=== PATIENT | female | born 1985 | race African-American/Black ===

== ENCOUNTER → 2024-09-30 | Outpatient (CLI) | payer OTHER ==
--- NOTE | 2024-09-30 11:40 | XR ---
EXAMINATION TYPE: XR shoulder complete LT DATE OF EXAM: 09/30/2024 11:27 AM INDICATION: Patient age:Unknown; 39 years old; Reason for study: S46.912A; pain COMPARISON: None TECHNIQUE: The left shoulder was examined in AP, internally rotated and scapular Y projections. . FINDINGS: No evidence of acute osseous pathology, joint dislocation, or soft tissue swelling. The remaining por tions of the visualized chest are unremarkable. IMPRESSION: No acute osseous pathology. [facility], , 09/30/2024 11:37 AM
== END | disposition home or self-care (01) ==
LOC: EDSEX 11:14 → RADXRMAIN 11:14
PROVIDERS: ATTEND Emergency Medicine
DX: S46.912A Strain of unspecified muscle, fascia and tendon at shoulder and upper arm level, left arm, initial encounter (principal); X58.XXXA Exposure to other specified factors, initial encounter

== ENCOUNTER 2025-03-04 05:57 | Day surgery (SDC) | payer OTHER ==
[2025-03-03 09:47] VITALS: BMI 26.2
--- NOTE | 2025-03-03 14:36 | HP ---
HISTORY AND PHYSICAL Surgery scheduled for 03/04/2025. HISTORY OF PRESENT ILLNESS: Raymundo Bae is a 39-year-old patient seen with progressive left shoulder pain, failing conservative treatment measures. Options were discussed. She elected to proceed with arthroscopy. Consent was obtained. PAST MEDICAL HISTORY: Hypertension. PAST SURGICAL HISTORY: Noncontributory. DAILY MEDICATIONS: Etodolac. ALLERGIES: None. SOCIAL HISTORY: She denies tobacco use. PHYSICAL EXAMINATION: Physical evaluation of the left shoulder, flexion is 100 degrees, abduction 70 degrees. External rotation is 40 degrees with some pain and weakness, tenderness along the anterolateral acromion, acromioclavicular joint, rotator cuff along the biceps tendon. Impingement positive at 90 degrees. Cross-body adduction sign is positive. Drop-arm sign is positive. Distal neurovascular exam is intact. IMAGING STUDIES: Left shoulder radiographs revealed a type 2 acromion along with moderate acromioclavicular joint osteoarthritis. MRI of left shoulder revealed partial rotator cuff tendon tear along with acromioclavicular osteoarthritis. IMPRESSION: 1. Left shoulder impingement with rotator cuff tear. 2. Left shoulder acromioclavicular joint osteoarthritis. PLAN: Left shoulder arthroscopy with subacromial decompression, arthroscopic rotator cuff repair, Zenaida procedure and debridement. MMODL / IJN: [id number] /
[2025-03-04] MEDS ORDERED: LIDOCAINE 1% (10MG/ML) FOR IV START INTRADERMA PRN (06:09)
[2025-03-04] MEDS: LACTATED RINGERS 1,000 ML IV SCH (06:44)
[2025-03-04] MEDS: DEXAMETHASONE SOD PHOSPHATE 4 MG/ML 1 ML VIAL IV ONE (06:45)
[2025-03-04] MEDS: IV FLUID CONTINUATION 1,000 ML IV ONE (06:45)
[2025-03-04] MEDS: ONDANSETRON 4 MG/2 ML VIAL IVP ONE (06:45)
[2025-03-04] MEDS: MIDAZOLAM 2 MG/2 ML VIAL IV ONE (06:49)
[2025-03-04] MEDS: fentaNYL (PF) 50 MCG/ML 2 ML AMP IVP ONE (06:49)
[2025-03-04] MEDS ORDERED: HYDROmorphone 0.5 MG/0.5 ML SYRINGE IVP PRN (07:00)
--- NOTE | 2025-03-04 07:17 | P.ANPRN ---
Procedure Note - Anesthesia - Nerve Block Performed Left Interscalene Single Time Out Performed: Yes Date of Procedure: 03/04/25 Procedure Start Time: 06:48 Procedure Stop Time: 06:54 Location of Patient: PreOp Indication: Acute Post-Operative Pain, Requested by Surgeon Sedation Type: Sedate with meaningful contact maintained Preparation: Sterile Prep Position: Supine Needle Types: Pajunk Needle Gauge: 21 Ultrasound used to visualize needle placement: Yes Ultrasound used to observe medication spread: Yes Injectate: 0.5% Ropivacaine (see comment for volume) (5 mL +4 mg dexamethasone) Blood Aspirated: No Pain Paresthesia on Injection Noted: No Resistance on Injection: Normal Image Stored and Saved: Yes Events: Uneventful and Well Tolerated
[2025-03-04] MEDS ORDERED: LIDOCAINE 4% LTA KIT (4 ML) TOPICAL ONE (07:23)
[2025-03-04] MEDS ORDERED: PROPOFOL 10 MG/ML 20 ML VIAL IV ONE (07:23)
[2025-03-04] MEDS ORDERED: LABETALOL 5 MG/ML VIAL MDV ONE (07:23)
[2025-03-04] MEDS ORDERED: LIDOCAINE 1% INJ 10MG/ML (20 ML MDV) ONE (07:23)
[2025-03-04] MEDS ORDERED: DEXAMETHASONE SOD PHOSPHATE 4 MG/ML 1 ML VIAL ONE (07:23)
[2025-03-04] MEDS ORDERED: SUCCINYLCHOLINE CHLORIDE 200 MG/10 ML VIAL IV ONE (07:23)
[2025-03-04] MEDS ORDERED: ROPIVACAINE 5 MG/ML 30 ML VIAL ONE (07:23)
[2025-03-04] MEDS ORDERED: hydrALAZINE HCL 20 MG/ML 1 ML VIAL ONE (07:23)
--- NOTE | 2025-03-04 09:06 | P.OP ---
Date of Procedure: 03/04/25 Preoperative Diagnosis: Left shoulder impingement Postoperative Diagnosis: 1. Left shoulder rotator cuff tear 2. Left shoulder impingement 3. Left shoulder superficial labral tear Procedure(s) Performed: 1. Left shoulder arthroscopic rotator cuff repair 2. Left shoulder arthroscopic subacromial decompression 3. Left shoulder arthroscopic debridement labral tear Implants: 1Arthrex 5.5 swivel lock anchor Anesthesia: GETA, regional (Interscalene block) Surgeon: Giuseppe Cartwright Customer Relations Consultant #1: Jose Miranda Estimated Blood Loss (ml): 7 Pathology: none sent Condition: stable Disposition: PACU Indications for Procedure: 39-year-old patient seen with progressive left shoulder pain. After having treatment options discussed, she elected to proceed with arthroscopy. Operative Findings: See description of procedure Description of Procedure: Patient underwent an interscalene block by department of anesthesia. The patient was then taken to the operative suite. The patient underwent a general anesthetic by the department of anesthesia. The patient was placed into a lateral position and secured. There was appropriate padding of the bony prominence. Left shoulder was then prepped and draped in normal sterile orthopedic fashion. We placed the extremity in 10 pounds of longitudinal traction. A posterior incision was now made for a posterior working portal site. The trocar and cannula were inserted into the glenohumeral joint. Arthroscopy was initiated. Spinal needle was now inserted anteriorly, to ascertain the anterior working portal site. An incision was now made in that area, a trocar was inserted followed by a probe. There was some superficial tearing of the anterior labrum. There was no chondromalacia. The biceps appeared intact. I reduced a motorized shaver and debrided the superficial labral tear. The residual labrum was probed and was found to be stable. Instruments were now removed from the glenohumeral joint. Utilizing the posterior working portal site, the trocar and cannula were inserted into the subacromial space. Arthroscopy initiated. I made an incision 2 fingerbreadths lateral to the acromion. I introduced my trocar followed by my ArthroCare ablator. I now began ablating thick subacromial bursal tissue, which exposed the undersurface of the anterior acromion. There was diminished subacromial space. There was a very prominent anterior acromion. A motorized bur was introduced and a subacromial decompression was performed. I also excised some osteophytes off the inferior aspect of the distal clavicle. The AC joint was visualized and noted to be mildly arthritic. I turned my attention to the rotator cuff tendon. Upon probing the area noted a full-thickness tear along the distal supraspinatus. I debrided that getting down to stable tendon tissue. The defect/tear measured about 1.5 cm and was freely mobile over the footprint. I abraded the footprint with a motorized bur. With the assistance of Kamari INIGUEZ I passed 2 Ubretid mattress sutures through good bites of rotator cuff tendon. I punch hole in the footprint area for insertion of an anchor. All 4 limbs of suture were passed through the eyelet of an Arthrex 5.5 swivel lock anchor. I placed the eyelet into the prepunched hole. I held it in position while Kamari INIGUEZ tensioned all 4 limbs of suture and deployed the anchor with good fixation noted. All residual suture limbs were now clipped. We had good compression of the tendon along the entire footprint. Instruments now removed from the portal sites. All portal sites were approximated with nylon suture. Sterile dressings were applied followed by a shoulder immobilizer. Jose INIGUEZ assisted in all aspects of this case. The patient was awakened, transferred to a bed, and taken to recovery in stable condition.
[2025-03-04] MEDS: hydrALAZINE HCL 20 MG/ML 1 ML VIAL IVP STA (11:00)
[2025-03-04] MEDS ORDERED: ACETAMINOPHEN TAB 325 MG TAB PO PRN (16:07)
[2025-03-04] MEDS: droPERidol 2.5 MG/ML VIAL IVP ONE (17:10)
[2025-03-04] MEDS: traMADol 50 MG TAB PO PRN (19:01)
[2025-03-04] MEDS ORDERED: hydrALAZINE HCL 20 MG/ML 1 ML VIAL IVP PRN (20:33)
--- NOTE | 2025-03-04 22:02 | P.CONS ---
History of Present Illness - Reason for Consult Consult date: 03/04/25 Management of hypertension - Chief Complaint Shoulder pain - History of Present Illness This is a 39-year-old female patient with a past medical history of essential hypertension presented with progressive left shoulder pain. Patient is admitted under Ortho for management of left shoulder rotator cuff tear and left shoulder superficial labral tear. Patient is status post surgery. She is complaining of left shoulder pain. It was reported that her blood pressure was elevated where she did receive a dose of IV hydralazine . Her blood pressure improved , but now her pressure went up to 170 systolic and 112 diastolic . She is still complaining of pain at the surgical site and currently receiving oral tramadol. No symptoms of chest pain, headache or blurry vision. Surgical team consulted hospitalist for blood pressure management. Patient usually takes Urazide , but she has to bring her medication from home . Review of system : Negative except for mentioned in HPI PE : General: Slightly in distress due to pain Derm: warm, dry, intact Head: atraumatic, normocephalic, symmetric Eyes: EOMI, anicteric sclera Mouth: no lip lesion, mucus membranes moist Cardiovascular: S1 S2 reg, no murmur, rubs, or gallops Lungs: CTA bilateral, no rales, no accessory muscle use Abdominal: soft, non-tender to palpataion, no appreciable organomegaly Neuro: Alert, Oriented, CNII-XII grossly intact, gait normal Psych: well appearing, appropriate affect Assessment and plan : -Accelerated hypertension : Patient usually on Urazide Will give one time Clonidine 0.2 mg If BP does not improve , will start IV hydralazine 10 mg q 6h PRN for systolic > 160 IV dilaudid for pain - Rotator cuff tear at the left shoulder status post surgery : Ortho is managing Thank you for the consult and we will keep following Time spent : 55 min Past Medical History Past Medical History: Hypertension Additional Past Medical History / Comment(s): torn tendon left shoulder,healing boil rt thigh, History of Any Multi-Drug Resistant Organisms: None Reported Past Surgical History: No Surgical Hx Reported Additional Past Anesthesia/Blood Transfusion Reaction / Comm: never has had anesthesia. no hx blood transfusion Past Psychological History: No Psychological Hx Reported Smoking Status: Never smoker Past Alcohol Use History: None Reported Past Drug Use History: None Reported - Past Family History Mother Family Medical History: Cancer Medications and Allergies Home Medications Medication Instructions Recorded Confirmed Type Naproxen [Naprosyn] 500 mg PO BID PRN 03/03/25 03/04/25 History Tylenol Migrain Relief 1 dose PO DIRECTED PRN 03/03/25 03/03/25 History Urazide 50 mg PO DAILY 03/03/25 03/04/25 History HYDROcodone/APAP 7.5-325MG [[place] 1 each PO Q6HR PRN #21 tab 03/04/25 Rx 7.5] Allergies Allergy/AdvReac Type Severity Reaction Status Date / Time No Known Allergies Allergy Verified 03/04/25 06:29 Physical Exam Vitals: Vital Signs Temp Pulse Pulse Resp BP Pulse Ox 03/04/25 19:03 104 H 147/90 99 03/04/25 18:59 106 H 18 156/102 99 03/04/25 18:44 96 148/94 98 03/04/25 18:30 102 H 153/95 99 03/04/25 18:14 94 161/94 98 03/04/25 17:59 90 156/96 97 03/04/25 17:44 95 141/91 98 03/04/25 17:29 98 157/97 98 03/04/25 17:00 85 16 130/88 96 03/04/25 16:38 97.9 F 85 17 130/88 96 03/04/25 16:00 87 16 125/93 96 03/04/25 15:00 82 16 126/85 96 03/04/25 14:00 97 16 118/77 97 03/04/25 13:30 99 16 108/71 97 03/04/25 13:00 91 16 107/74 97 03/04/25 12:46 98 16 105/68 96 03/04/25 12:16 87 16 109/67 96 03/04/25 12:01 87 14 105/65 96 03/04/25 11:46 89 16 109/68 96 03/04/25 11:32 87 16 112/70 96 03/04/25 11:17 76 16 128/88 97 03/04/25 11:02 95 16 136/82 96 03/04/25 10:47 82 16 140/109 96 03/04/25 10:32 87 16 149/105 96 03/04/25 10:23 82 12 132/96 96 03/04/25 10:08 98.1 F 71 14 133/96 96 03/04/25 09:53 80 13 146/91 96 03/04/25 09:38 80 14 136/92 96 03/04/25 09:23 80 15 144/100 97 03/04/25 09:08 82 17 145/99 99 03/04/25 08:53 96.8 F L 93 14 159/108 98 03/04/25 07:04 61 16 157/107 100 03/04/25 06:55 63 16 167/105 99 03/04/25 06:50 62 14 163/112 100 03/04/25 06:35 97.2 F L 70 16 152/102 99 Intake and Output 03/04/25 03/04/25 03/04/25 06:59 14:59 22:59 Intake Total 100 950 Output Total 7 Balance 100 943 Intake: IV 100 950 Output: Estimated Blood Loss 7 Other: Weight 67.9 kg 67.9 kg
[2025-03-05] MEDS: HYDROmorphone 0.5 MG/0.5 ML SYRINGE IVP PRN (04:26)
--- NOTE | 2025-03-05 08:17 | P.DS ---
Providers Date of admission: 03/04/25 Expected date of discharge: 03/05/25 Attending physician: Giuseppe Cartwright Consults: 03/04/25 20:20 Consult Physician Stat Consulting Provider: Hernán Piper Consult Reason/Comments: medical management high blood Do you want consulting provider notified?: Yes Primary care physician: [facility] Course: Hospital Course: The patient was evaluated preoperatively and found to have the diagnosis of left shoulder rotator cuff tear. They underwent appropriate preoperative care and were willing to undergo the intended procedure. They underwent a successful left shoulder arthroscopic repair, were recovered appropriately and sent to the floor. While on the floor they worked with physical therapy, occupational therapy and nursing to enhance their recovery experience. Their pain was well controlled through their stay and they were started on appropriate medications, DVT ppx modalities, activity and dietary needs. Daily labs were monitored closely, and transfusions were only used when necessary. Medicine as well as other consulting services have made their input and have helped with our team approach and multidisciplinary care. PT milestones have been met and passed and they have made the recommendation of home for this patient and treating providers agree with this care path. The patient will be discharged home with appropriate medications, instructions and follow-up information and in stable condition. Patient Condition at Discharge: Good Plan - Discharge Summary Discharge Rx Participant: No New Discharge Prescriptions: New HYDROcodone/APAP 7.5-325MG [[place] 7.5] 1 each PO Q6HR PRN #21 tab PRN Reason: Pain No Action Urazide 50 mg PO DAILY Naproxen [Naprosyn] 500 mg PO BID PRN PRN Reason: Pain Tylenol Migrain Relief 1 dose PO DIRECTED PRN PRN Reason: Pain Discharge Medication List Naproxen [Naprosyn] 500 mg PO BID PRN 03/03/25 [History] Tylenol Migrain Relief 1 dose PO DIRECTED PRN 03/03/25 [History] Urazide 50 mg PO DAILY 03/03/25 [History] HYDROcodone/APAP 7.5-325MG [[place] 7.5] 1 each PO Q6HR PRN #21 tab 03/04/25 [Rx] Follow up Appointment(s)/Referral(s): Jose Miranda PAC [PHYSICIAN FLOORING PROFESSIONAL] - 03/19/25 10:10 am Patient Instructions/Handouts: *Surgery [facility] - (Anesthesia) Discharge Instructions Outpatient Surgery, *Surgery [facility] - (Adv Ortho) Shoulder Discharge Instructions, Peripheral Nerve Block (DC) Discharge Disposition: HOME SELF-CARE
--- NOTE | 2025-03-05 08:24 | P.PN ---
Subjective Progress Note Date: 03/05/25 Principal diagnosis: 1. Left shoulder rotator cuff tear 2. Left shoulder impingement 3. Left shoulder superficial labral tear Patient seen and examined this morning. Patient is resting comfortably in bed. She has been standby assist to the restroom, tolerating activity well. She does report that her pain is managed on current regimen. Patient does continue to be slightly sleepy during conversation. She does report that she feels safe going home. She states that her sister has picked up her medications from the pharmacy. Dressing to the left shoulder is clean dry and intact. No acute concerns. Objective - Vital Signs Vital signs: Vital Signs Temp 97.4 F L 03/05/25 07:15 Pulse 67 03/05/25 07:15 Resp 16 03/05/25 07:15 BP 112/72 03/05/25 07:15 Pulse Ox 99 03/05/25 07:15 FiO2 Intake & Output 03/04/25 03/05/25 03/05/25 18:59 06:59 18:59 Intake Total 950 Output Total 7 Balance 943 Weight 67.9 kg Intake: IV 950 Output: Estimated Blood Loss 7 Other: Voiding Method Bedpan # Voids 2 - Exam Inspection: Bulky dressing to the left shoulder is clean dry and intact. Sensation: Sensation is equal, symmetric, bilaterally intact throughout the upper and lower extremities Palpation: There is tenderness over the left shoulder secondary to surgery. Range of motion: Limited range of motion of the left shoulder secondary to pain and surgical procedure. Motor: Left: shoulder abduction 4-/5, elbow flexors 4/5, wrist dorsiflexors 4/5. finger abductor 4/5, industrial maintenance electrician 4/5, Neurovascular: Radial pulse intact, 2+ bilaterally. Cap refill under 3 seconds in digits upper extremities. Assessment and Plan Assessment: Postop day 1: Left shoulder arthroscopic repair Plan: -Appreciate it architecture consultant and team management. -Activity: Ambulate QID, OOB all meals, up and about, limit lifting bending twisting to less than 5 lbs. Use walker or cane if needed for stability. -Daily PT/OT, increase ambulation strength and balance. -Pain control: Adequate at this time -Meds: reviewed -Hygiene: Maintain incision clean and dry. -Encourage IS 10x/hr -Dispo: Discharge home later today. *I reviewed and discussed this case with my attending Dr. Cartwright, whom has reviewed this chart and films and is in agreement with assessment and plan of care as outlined above. I have personally seen and examined the patient, performed the documentation and the assessment and plan as written. Number of minutes spent on the visit: 20m
[2025-03-05] MEDS: SPIRONOLACTONE 25 MG TAB PO SCH (09:05)
--- NOTE | 2025-03-05 12:44 | P.PN ---
Subjective Progress Note Date: 03/05/25 Hospital course: Patient is a very pleasant 39-year-old female with a past medical history of hypertension. She is currently admitted under orthopedic surgery team status post left shoulder rotator cuff repair. Surgical procedure was completed secondary to intractable left shoulder pain resulting from superficial labral tear. We were consulted for medical management and hypertensive urgency and postoperative period. Physical exam: Patient seen full evaluated at bedside this morning. She is currently resting comfortably in bed. She was just medicated for pain and reports pain medication is controlling. She did receive a single dose of IV hydralazine for hypertensive urgency during postoperative period but blood pressures have since significantly improved and currently controlled at 112/72. Patient reports moderate postoperative pain as well as pain in her left wrist. Patient's postop erative sling was adjusted and patient instructed it is important not to rest ulnar wrist on the end of sling as this can result in nerve compression. Patient verbalized understanding. She denies any other complaints including chest pain, palpitations, shortness of breath, dizziness, lightheadedness, or experiencing any numbness/tingling in her left hand. Movement intact of fingers and she is able to make fist. Vital signs reviewed and stable. General: Nontoxic, no distress and appears stated age. Derm: Skin warm and dry, normal coloration for ethnicity. Head: Atraumatic, normocephalic and symmetric. Eyes: EOM's intact, no lid lag, and anicteric sclera Mouth: no lip lesions, mucus membranes moist Cardiovascular: regular rate and rhythm with normal S1S2, no murmur, positive posterior tibial pulses bilaterally, and cap refill < 2 seconds. Lungs: Respirations even, regular, and unlabored on room air. Lungs CTA bilaterally, no rhonchi, no rales, no wheezing, and no accessory muscle usage. Abdominal: soft, nontender to palpation, no guarding, no appreciable organomegaly Ext: No gross muscle atrophy, no edema, no contractures. Postoperative dressing in place left shoulder and left arm in sling. Movement and sensation of left hand and fingers intact. Neuro: Speech clear, face symmetrical and CN II-XII grossly intact with no noted focal neuro deficits Psych: Alert and oriented to person, place, time, and situation. Appropriate and pleasant affect. Assessment and Plan of Care: Status post left shoulder rotator cuff repair -Management per primary admitting orthopedic surgery team including DVT prophylaxis, pain management, wound/dressing management, and weightbearing of left upper extremity. Accelerated hypertension, likely secondary to uncontrolled postoperative pain - Accelerated hypertension has resolved after antihypertensive medication administration as well as optimizing pain control. Morning blood pressure 112/72 and heart rate 67. Continue to monitor vital signs and patient to continue daily medication regimen with [place] 50 mg daily. Data reviewed: Vital signs reviewed. Blood pressure 112/72, heart rate 67, respiratory rate 16, temp 97.4 F, and SpO2 of 99% on room air. Patient is medically optimized for discharge once cleared by primary admitting orthopedic surgery team. Thank you for allowing us to participate in the care of this pleasant patient. Do not hesitate to contact us with questions. Someone can be reached from the [facility] hospitalist group all hours of the day at [phone] or via [employer]. Patient was seen independently by Nurse Pracitioner. This document was prepared using [employer] dictation software. Please allow for errors in target network analyst, while rare they do occur. Dewey Pitts NP rendered care for this patient independently, reviewed the findings and plan as documented in the note above and agree with plan. I did not physically speak with or examine the patient on this date. Objective - Vital Signs Vital signs: Vital Signs Temp 97.4 F L 03/05/25 07:15 Pulse 67 03/05/25 07:15 Resp 16 03/05/25 07:15 BP 112/72 03/05/25 07:15 Pulse Ox 99 03/05/25 07:15 FiO2 Intake & Output 03/04/25 03/05/25 03/05/25 18:59 06:59 18:59 Intake Total 950 Output Total 7 Balance 943 Weight 67.9 kg Intake: IV 950 Output: Estimated Blood Loss 7 Other: Voiding Method Bedpan # Voids 2
[2025-03-05] MEDS: ACETAMINOPHEN TAB 500 MG TAB PO SCH (15:04)
[2025-03-05] MEDS: NAPROXEN 250 MG TAB PO PRN (16:44)
--- NOTE | 2025-03-06 09:13 | P.PN ---
Subjective Progress Note Date: 03/06/25 Hospital course: Patient is a very pleasant 39-year-old female with a past medical history of hypertension. She is currently admitted under orthopedic surgery team status post left shoulder rotator cuff repair. Surgical procedure was completed secondary to intractable left shoulder pain resulting from superficial labral tear. We were consulted for medical management and hypertensive urgency and postoperative period. Physical exam: Patient seen full evaluated at bedside this morning. She is currently resting comfortably in bed. Left shoulder dressing in place in left upper extremity in sling. Patient currently reports pain is controlled with current pain medication regimen. She reports pain previously experienced in the left wrist has resolved and continues to deny having any numbness or tingling in her left hand. Patient denies having any other questions, concerns, complaints, or needs at this time. Vital signs reviewed and stable. General: Nontoxic, no distress and appears stated age. Derm: Skin warm and dry, normal coloration for ethnicity. Head: Atraumatic, normocephalic and symmetric. Eyes: EOM's intact, no lid lag, and anicteric sclera Mouth: no lip lesions, mucus membranes moist Cardiovascular: regular rate and rhythm with normal S1S2, no murmur, positive posterior tibial pulses bilaterally, and cap refill < 2 seconds. Lungs: Respirations even, regular, and unlabored on room air. Lungs CTA bilaterally, no rhonchi, no rales, no wheezing, and no accessory muscle usage. Abdominal: soft, nontender to palpation, no guarding, no appreciable organomegaly Ext: No gross muscle atrophy, no edema, no contractures. Postoperative dressing in place left shoulder and left arm in sling. Movement and sensation of left hand and fingers intact. Neuro: Speech clear, face symmetrical and CN II-XII grossly intact with no noted focal neuro deficits Psych: Alert and oriented to person, place, time, and situation. Appropriate and pleasant affect. Assessment and Plan of Care: Status post left shoulder rotator cuff repair -Management per primary admitting orthopedic surgery team including DVT prophylaxis, pain management, wound/dressing management, and weightbearing of left upper extremity. Accelerated hypertension, likely secondary to uncontrolled postoperative pain - Accelerated hypertension has resolved after antihypertensive medication administration as well as optimizing pain control. Continue to monitor vital signs and patient to continue daily medication regimen with [place] 50 mg daily. Data reviewed: Vital signs reviewed. Blood pressure 64, respiratory rate 18, temp 98.6 F, and SpO2 of 99% on room air. Patient is medically optimized for discharge and discussed medical clearance with primary admitting orthopedic surgery team's DOCKING SAW OPERATOR. Thank you for allowing us to participate in the care of this pleasant patient. Do not hesitate to contact us with questions. Someone can be reached from the [facility] hospitalist group all hours of the day at [phone] or via [employer]. Patient was seen independently by Nurse Pracitioner. This document was prepared using [employer] dictation software. Please allow for errors in cigarette making examiner, while rare they do occur. Dewey Pitts, CLARA rendered care for this patient independently, reviewed the findings and plan as documented in the note above and agree with plan. I did not physically speak with or examine the patient on this date. Objective - Vital Signs Vital signs: Vital Signs Temp 98.6 F 03/06/25 07:15 Pulse 64 03/06/25 07:15 Resp 18 03/06/25 07:15 BP 141/91 03/06/25 07:15 Pulse Ox 99 03/06/25 07:15 FiO2 Intake & Output 03/05/25 03/06/25 03/06/25 18:59 06:59 18:59 Intake Total 1080 Balance 1080 Intake: Oral 1080 Other: Voiding Method Toilet # Voids 1 2
[2025-03-06 10:15] VITALS: BP 141/91; PULSE 64; RESP 18; TEMP 98.6
== END 2025-03-06 14:35 | disposition home or self-care (01) ==
LOC: OR 05:57 → 4SSUR 16:35 → OR 03-06 14:35
PROVIDERS: ATTEND Orthopaedic Surgery
DX: S43.402A Unspecified sprain of left shoulder joint, initial encounter (principal); M75.102 Unspecified rotator cuff tear or rupture of left shoulder, not specified as traumatic; M75.42 Impingement syndrome of left shoulder; M19.012 Primary osteoarthritis, left shoulder; G89.18 Other acute postprocedural pain; I10 Essential (primary) hypertension; Z79.899 Other long term (current) drug therapy; X58.XXXA Exposure to other specified factors, initial encounter
CPT/HCPCS: 29824; 29826; 29827; 64415; 81025; C1894; C1713; J2250; J0330; J0360; J1100; J2405; J0690; J2003; J3010; J2795; J2704; J1171; J1920